=== PATIENT | female | born 1985 | race African-American/Black ===

== ENCOUNTER 2017-08-30 08:21 | Emergency (ER) | payer MEDICAID, OTHER ==
[~2017-08-30] VITALS: Ht 160 cm; Wt 75.0 kg
[2017-08-30] MEDS ORDERED: IBUP-2029 PO (08:29)
[2017-08-30] MEDS ORDERED: LISI-604 PO (08:29)
[2017-08-30] MEDS ORDERED: HYDR25TA PO (08:29)
[2017-08-30] MEDS ORDERED: IPRATROPIUM/ALBUTEROL 0.5-3(2.5)MG/3ML NEB HHN ONE (09:00)
[2017-08-30 09:59] VITALS: BP 151/92
== END 2017-08-30 10:07 | disposition home or self-care (01) ==
LOC: ER 08:38
DX: J02.9 Acute pharyngitis, unspecified (principal); R05 Cough; I10 Essential (primary) hypertension; Z88.9 Allergy status to unspecified drugs, medicaments and biological substances
CPT/HCPCS: 81025; 94640; 99283; J7620

== ENCOUNTER 2022-01-23 16:18 | Emergency (ER) | payer OTHER, MEDICAID ==
[~2022-01-23] VITALS: Ht 162.6 cm; Wt 82.0 kg
[~2022-01-23 16:18] MED LIST: HYDR25TA PO; IBUP-2029 PO; LISI20TA31 PO
[2022-01-23 16:38] VITALS: BP 164/98
[2022-01-23] MEDS ORDERED: TUSSL MT (21:16)
== END 2022-01-23 21:23 | disposition home or self-care (01) ==
LOC: ER 16:18
DX: B34.9 Viral infection, unspecified (principal); I10 Essential (primary) hypertension; Z88.5 Allergy status to narcotic agent; Z98.890 Other specified postprocedural states
CPT/HCPCS: 71045; 99283

== ENCOUNTER 2023-03-27 19:54 | Emergency (ER) | payer OTHER, MEDICAID ==
[~2023-03-27] VITALS: Ht 162.6 cm; Wt 81.0 kg
[~2023-03-27 19:54] MED LIST changes: +TUSSL MT
[2023-03-27 20:02] VITALS: O2SAT 100
[2023-03-27 21:30] VITALS: BP 145/92; PULSE 87; RESP 14; TEMP 98.2
== END 2023-03-27 22:11 | disposition home or self-care (01) ==
LOC: ER 19:54
DX: F41.0 Panic disorder [episodic paroxysmal anxiety] (principal); I10 Essential (primary) hypertension; Z88.8 Allergy status to other drugs, medicaments and biological substances; Z98.890 Other specified postprocedural states
CPT/HCPCS: 93005; 99283

== ENCOUNTER 2024-03-24 10:42 | Emergency (ER) | payer OTHER, MEDICAID ==
[~2024-03-24] VITALS: Ht 162.6 cm; Wt 91.0 kg
[2024-03-24 10:52] VITALS: BP 148/97; PULSE 103; RESP 16; TEMP 37; O2SAT 100
[2024-03-24] MEDS ORDERED: ALBU18HF2 IH (11:03)
== END 2024-03-24 11:24 | disposition home or self-care (01) ==
LOC: ER 10:42
DX: R05.9 Cough, unspecified (principal); R09.81 Nasal congestion; I10 Essential (primary) hypertension; Z88.8 Allergy status to other drugs, medicaments and biological substances; Z79.899 Other long term (current) drug therapy; Z98.890 Other specified postprocedural states
CPT/HCPCS: 99283

== ENCOUNTER 2024-04-01 15:09 | Inpatient (IN) | payer OTHER, MEDICAID ==
[~2024-04-01] VITALS: Ht 162.6 cm; Wt 93.0 kg
[~2024-04-01 15:09] MED LIST changes: +ALBU18HF2 IH
[2024-04-01 16:26] LABS: BASOPHILS % 0.4 % (0.0-2.0); EOSINOPHILS % 4.2 % (0.0-5.0); HEMATOCRIT. 35.7 % (36.0-48.0); HEMOGLOBIN. 11.4 g/dL (12.0-16.0); LYMPHOCYTES % 22.9 % (20.0-50.0); MEAN CORPUSCULAR HEMOGLOBIN 27.3 pg (28.0-32.0); MEAN CORPUSCULAR HGB CONC 31.9 g/dL (31.0-37.0); MEAN CORPUSCULAR VOLUME 85.8 fL (81.0-99.0); MEAN PLATELET VOLUME 8.3 fl (7.4-10.4); MONOCYTES % 9.5 % (2.0-8.0); PLATELET 447 x1000/uL (130-400); RED BLOOD CELL COUNT 4.16 mill/uL (4.2-5.4); WHITE BLOOD COUNT 12.1 x1000/uL (4.5-11.0)
[2024-04-01 16:30] LABS: CHLORIDE 103 mEq/L (98-107); POTASSIUM 3.5 mEq/L (3.5-5.1); SODIUM 139 mEq/L (136-145)
[2024-04-01 16:31] LABS: CALCIUM 9.8 mg/dL (8.7-10.4); CARBON DIOXIDE 28 mEq/L (21-32)
[2024-04-01 16:36] LABS: CREATININE 0.8 mg/dL (0.6-1.0); GLUCOSE 107 mg/dL (70-105); HCG SCREEN NEGATIVE; UREA NITROGEN BLOOD 6 mg/dL (9-23)
[2024-04-01 16:37] LABS: TROPONIN I HIGH SENSITIVITY < 4 ng/L (3.0-34)
[2024-04-01 16:38] LABS: ALANINE AMINOTRANSFERASE 16 IU/L (10-49); ALBUMIN 4.2 g/dL (3.2-4.8); ASPARTATE AMINOTRANSFERASE 16 IU/L (<34); BILIRUBIN TOTAL 0.3 mg/dL (0.1-1.0); PROTEIN TOTAL 8.1 g/dL (6.0-8.3)
[2024-04-01 16:39] LABS: BILIRUBIN DIRECT < 0.1 mg/dL (<=3.0)
[2024-04-01] MEDS: SODIUM CHLORIDE 0.9% 500 ML IV ONE (18:12)
[2024-04-01 19:41] LABS: CLARITY URINE CLEAR (CLEAR); COLOR URINE YELLOW (YELLOW); GLUCOSE URINE NEGATIVE (NEGATIVE); KETONES URINE NEGATIVE (NEGATIVE); LEUKOCYTE ESTERASE URINE TRACE (NEGATIVE); NITRITE URINE NEGATIVE (NEGATIVE); OCCULT BLOOD URINE NEGATIVE (NEGATIVE); PH URINE 8.5 (4.5-8.0); PROTEIN URINE NEGATIVE (NEGATIVE); SPECIFIC GRAVITY URINE 1.007 (1.005-1.030); UROBILINOGEN URINE 0.2 E.U./dL (0.2-1.0)
[2024-04-01 19:56] LABS: BACTERIA URINE TRACE; RBC URINE 0-2 /hpf (0-2); SQUAMOUS EPITHELIAL CELL URINE 1+ /lpf (RARE/1+); WBC URINE 0-2 /hpf (0-2)
[2024-04-01] MEDS: PREDNISONE 20MG TABLET PO STA (20:40)
[2024-04-01] MEDS: ALBUTEROL (0.083%) 2.5MG/3ML NEB HHN STA (20:44)
[2024-04-01] MEDS: IPRATROPIUM BROMIDE (0.02%) 0.5MG/2.5ML NEB HHN STA (20:44)
[2024-04-01 20:50] VITALS: PULSE 78; RESP 20; O2SAT 95
[2024-04-01] MEDS ORDERED: AZITHROMYCIN 500MG/250ML 250 ML IV ONE (21:45)
[2024-04-01] MEDS: SODIUM CHLORIDE 0.9% (SEPSIS BOLUS) IV NR (22:38)
[2024-04-01] MEDS: CEFTRIAXONE 1GM/50ML 50 ML IV NR (22:46)
[2024-04-01 23:02] LABS: LACTIC ACID 2.3 mmol/L (0.4-2.0)
[2024-04-01] MEDS: IOHEXOL-350 100 ML BOTTLE ONE (23:04)
[2024-04-01] MEDS: VANCOMYCIN 1G PREMIX 200 ML IV NR (23:18)
[2024-04-02 00:53] VITALS: BP 148/77; PULSE 108; RESP 20; TEMP 36.8; O2SAT 100
[2024-04-02] MEDS: AZITHROMYCIN 500 MG in SODIUM CHLORIDE 0.45% 250 ML IV SCH (03:06)
[2024-04-02 03:33] VITALS: BP 148/77; PULSE 108; RESP 20; TEMP 36.9
[2024-04-02 04:00] VITALS: BP 152/99; PULSE 90; RESP 20; TEMP 36.3; O2SAT 98
[2024-04-02] MEDS ORDERED: HYDROCODONE/ACETAMINOPHEN 5/325MG TABLET PO PRN (05:45)
[2024-04-02] MEDS ORDERED: IPRATROPIUM/ALBUTEROL 0.5-3(2.5)MG/3ML NEB HHN PRN (05:45)
[2024-04-02] MEDS ORDERED: METHYLPREDNISOLONE 40MG/ML INJ IV SCH (06:00)
[2024-04-02] MEDS: METHYLPREDNISOLONE SOD SUCC 40MG/ML (ACT-O-VIAL) IV SCH (06:56)
[2024-04-02 08:00] VITALS: BP 150/99; PULSE 94; RESP 22; TEMP 37.2; O2SAT 98
[2024-04-02] MEDS ORDERED: MONTELUKAST SODIUM 10MG TABLET PO SCH (09:00)
[2024-04-02] MEDS ORDERED: NIFE90TA2 PO (10:36)
[2024-04-02 11:06] VITALS: PULSE 93; RESP 20; O2SAT 95
[2024-04-02] MEDS: BUDESONIDE 0.5MG/2ML NEB HHN SCH (11:08)
[2024-04-02] MEDS: LISINOPRIL 20MG TABLET PO SCH (11:15)
[2024-04-02] MEDS ORDERED: IPRATROPIUM/ALBUTEROL 0.5-3(2.5)MG/3ML NEB HHN SCH (12:00)
[2024-04-02] MEDS ORDERED: FLUT1DIS3 INH (12:11)
[2024-04-02] MEDS ORDERED: IPRA3AMP9 NEB (12:11)
[2024-04-02] MEDS ORDERED: P20 MT (12:11)
[2024-04-02] MEDS ORDERED: LEVO750T68 MT (12:11)
[2024-04-02] MEDS: NIFEDIPINE XL 60MG TAB PO SCH (12:50)
[2024-04-02 13:58] VITALS: BP 161/95; PULSE 98; TEMP 98.3; O2SAT 97
[2024-04-02] MEDS ORDERED: AZITHROMYCIN 500 MG TABLET PO SCH (21:00)
[2024-04-02] MEDS ORDERED: CEFTRIAXONE 1GM/50ML 50 ML IV SCH (21:00)
== END 2024-04-02 15:38 | disposition home or self-care (01) | DRG 871 ==
LOC: ER 15:09 → 5WST 23:15 → EDBEDREQTM 23:17 → EDBEDREQ 23:17
PROVIDERS: ADMIT Internal Medicine; ATTEND Internal Medicine
DX: A41.9 Sepsis, unspecified organism (principal); J18.9 Pneumonia, unspecified organism; E66.9 Obesity, unspecified; Z20.822 Contact with and (suspected) exposure to COVID-19; I10 Essential (primary) hypertension; Z68.35 Body mass index [BMI] 35.0-35.9, adult; Z98.891 History of uterine scar from previous surgery
CPT/HCPCS: 36415; 71045; 71275; 80048; 80076; 81003; 83605; 84145; 84484; 84703; 85025; 85379; 87426; 87804; 93005; 94070; 94640; 94664; 98960; 99291; J0456; J0696; J2920; J3370; J7512; J7626; Q9967